=== PATIENT | female | born 1950 | race Caucasian/White ===

== ENCOUNTER 2016-05-31 09:20 | Outpatient (CLI) | payer OTHER ==
--- NOTE | 2016-05-31 09:49 | DIAGNOSTIC IMAGING REPORT ---
PROCEDURE: XR CHEST 2 VIEW INDICATION: ABNORMAL SPUTUM TECHNIQUE: PA and lateral view. COMPARISON: None. FINDINGS: Lungs are clear. Cardiovascular structures are normal. Mild degenerative changes of the spine. Cholecystectomy. IMPRESSION: 1. Negative chest. 2. Results discussed with Dr. Falcon
== END 2016-05-31 23:00 ==
LOC: XR SRH 09:20
DX: R09.3 Abnormal sputum (principal)

== ENCOUNTER 2016-09-16 10:24 | Outpatient (CLI) | payer OTHER ==
--- NOTE | 2016-09-16 10:58 | DIAGNOSTIC IMAGING REPORT ---
PROCEDURE: XR KNEE 3 VIEWS - LEFT INDICATION: KNEE PAIN LEFT TECHNIQUE: Three views. COMPARISON: None. FINDINGS: Osteoarthritis with narrowing of the medial joint space compartment and sclerosis of the endplates. IMPRESSION: 1. Osteoarthritis left knee.
== END 2016-09-16 23:00 ==
LOC: XR SRH 10:24
DX: M17.12 Unilateral primary osteoarthritis, left knee (principal)

== ENCOUNTER 2016-10-16 09:46 | Outpatient (CLI) | payer OTHER ==
--- NOTE | 2016-10-16 10:39 | DIAGNOSTIC IMAGING REPORT ---
PROCEDURE: XR CHEST 2 VIEW INDICATION: COUGH CHRONIC TECHNIQUE: PA and lateral views. COMPARISON: Chest 05/31/2016 FINDINGS: Lungs are clear. Heart and mediastinum are normal. Thorax is normal. IMPRESSION: 1. Negative chest.
== END 2016-10-16 23:00 ==
LOC: XR SRH 09:46
DX: R05 Cough (principal)

== ENCOUNTER 2016-10-17 09:20 | Outpatient (CLI) | payer OTHER ==
--- NOTE | 2016-10-17 16:45 | DIAGNOSTIC IMAGING REPORT ---
PROCEDURE: US ECHOCARDIOGRAM INDICATION: Congestive heart failure TECHNIQUE: Comprehensive adult transthoracic echocardiogram of adequate quality. The patient is in sinus rhythm during the study. COMPARISON: None FINDINGS: Left ventricle: Normal size with end diastolic dimension of 3.7 cm. Normal wall thickness. Normal wall motion. Left ventricular ejection fraction is 63%. There is grade 1 diastolic dysfunction. Right ventricle: Normal size and function. Left atrium: Normal size. Right atrium: Normal size. Aortic valve: Normal in structure and function. No stenosis or insufficiency. Mitral valve: Normal in structure and function with trace physiologic insufficiency. Tricuspid valve: Normal in structure and function with trace to mild impression with mild insufficiency. Pulmonary artery systolic pressure is estimated 29 mmHg which is normal. Pulmonic valve: Normal structure and function. Pericardium: Appears normal. No effusion. The Aorta: Ascending aorta is normal in size at 2.9 cm. IMPRESSION: Normal left ventricular ejection fraction Grade 1 diastolic dysfunction Right ventricle normal in size and function All valves normal in function Normal right heart pressures
== END 2016-10-17 23:00 | disposition home or self-care (01) ==
LOC: RT SRH 09:20
DX: R05 Cough (principal); I10 Essential (primary) hypertension; Z86.79 Personal history of other diseases of the circulatory system

== ENCOUNTER 2016-11-03 10:19 | Emergency (ER) | payer OTHER ==
--- NOTE | 2016-11-03 12:23 | DIAGNOSTIC IMAGING REPORT ---
PROCEDURE: XR CHEST 2 VIEW INDICATION: MALAISE TECHNIQUE: PA and lateral view. COMPARISON: Chest x-ray 10/16/2016 FINDINGS: Lungs are clear. Cardiovascular structures are normal. Bony thorax is unremarkable. No significant interval change. IMPRESSION: 1. Negative chest.
--- NOTE | 2016-11-03 13:15 | ED ORDER SUMMARY ---
..... Patient: KENNETH JONES OrderSheet [facility] VisitID: [id number] [address] Ger[address] [place], [place] [id number] 66y, F Registration Date/Time: 11/03/2016 ORDER SHEET Weight: 79.8 kg (stated) Allergies: No Known Drug Allergy GENERAL ORDERS: CBC w Diff Urgent (10:40 11/03/2016 Mary Zuleta) (Ack 10:47 Valentin) (11:42 SRoberts R.N.) CMP Urgent (10:40 11/03/2016 Mary Zuleta) (Ack 10:47 Valentin) (11:42 SRoberts R.N.) UA-Culture if indicated Urgent (10:40 11/03/2016 Mary Zuleta) (Ack 10:47 Valentin) (11:42 SRoberts R.N.) PT with INR Urgent (10:40 11/03/2016 Mary Zuleta) (Ack 10:47 Valentin) (11:43 SRoberts R.N.) PTT Urgent (10:40 11/03/2016 Mary Zuleta) (Ack 10:47 Valentin) (11:43 SRoberts R.N.) Chest 2V Urgent (10:51 11/03/2016 Mary Zuleta) (Ack 11:17 Valentin) (11:50 SRoberts R.N.) TSH Urgent (10:52 11/03/2016 Mary Zuleta) (Ack 11:17 Valentin) (11:43 SRoberts R.N.) - (malaria blood test, microscopy) (11:07 11/03/2016 Mary Zuleta) (Ack 11:17 Valentin) (11:43 SRoberts R.N.) RSV Rapid Screen (Nasal Pharyngeal) (mucus) Urgent (11:29 11/03/2016 Mary Zuleta) (Ack 11:39 Valentin) (11:50 SRoberts R.N.) Rapid Influenza Screen (Nasal Pharyngeal) (mucus) Urgent (11:30 11/03/2016 Mary Zuleta) (Ack 11:39 Valentin) (11:50 SRoberts R.N.) Monoscreen Urgent (11:30 11/03/2016 Mary Zuleta) (Ack 11:39 Valentin) (11:44 Dante Marie) MEDICATION ORDERS: IV FLUIDS: IV Saline Lock (10:52 11/03/2016 Mary Zuleta) (11:52 Dante Marie) ORDER SHEET NOTES: [Electronically signed by Bernarda Ospina R.N. (15:22 11/03/2016)] [Electronically signed by Shyam Foley Dr. (06:13 11/12/2016)] [Electronically locked/signed by Bernarda Ospina R.N. (15:22 11/03/2016)]
--- NOTE | 2016-11-03 13:15 | ED CLINICAL REPORT ---
Clinical Report - Physicians/Mid Levels [address] [place] [address] 11/03/2016 10:20 Patient: KENNETH JONES Time Seen: 1040. Arrived- By private vehicle. Historian- patient. HISTORY OF PRESENT ILLNESS Chief Complaint: malaise. This started 2 months ago and is still present and worsening. It is not gone now. It has been constant. Not gradual onset. At its maximum, severity described as moderate. When seen in the E.D., severity described as moderate. Modifying factors- (worse with exertion. better with rest.). The patient has had fatigue. (states she was in [facility] about 1.5 years ago. States she was diagnosed with malaria at that time. no symptoms after returning back to the [facility]. reports she is concerned because of similar symptoms. no fever, cough, jaundice, or other symptoms. no recent mosquito bites, flea bites, exposure to contaminated fresh water.). Similar symptoms previously: None. Recent medical care: Not recently seen/assessed. REVIEW OF SYSTEMS No fever, sore throat, cough, difficulty breathing or chest pain. No abdominal pain, diarrhea, black stools, bloody stools or skin rash. No headache. All systems otherwise negative, except as recorded above. PAST HISTORY See nurses notes. Medications: Ibuprofen Oral, PRN. Lisinopril-Hydrochlorothiazide Oral (Tablet 10-12.5 mg) 1 tablet, day. Zoloft Oral 25 mg, at bedtime. TraZODone HCl Oral 50 mg, at bedtime (stopped recently). Allergies: No Known Drug Allergy. SOCIAL HISTORY Never smoker. No alcohol use or drug use. No recent travel. Is a local resident. ADDITIONAL NOTES The nursing notes have been reviewed. PHYSICAL EXAM Vital Signs: 11/03/2016 10:42 BP: 136/64. HR: 86. RR: 20. O2 saturation: 100%. Temp: 97.7 F. Pain level now: 0/10. Appearance: Alert. No acute distress. Eyes: Pupils equal, round and reactive to light. Eyes normal inspection. ENT: Ears normal. Nose normal. Pharynx normal. Neck: Normal inspection. Neck supple. No meningeal signs. CVS: Normal heart rate and rhythm. Heart sounds normal. Pulses normal. Respiratory: No respiratory distress. Breath sounds normal. Chest nontender. No rales, rhonchi or wheezes. Abdomen: No visible injury. Soft and nontender. Bowel sounds normal. Skin: Skin warm and dry. Normal skin color. No rash. Normal skin turgor. Extremities: Extremities exhibit normal ROM. No lower extremity edema. Neuro: No motor deficit. No sensory deficit. LABS, X-RAYS, AND EKG Chest X-ray: (PROCEDURE: XR CHEST 2 VIEW INDICATION: MALAISE TECHNIQUE: PA and lateral view. COMPARISON: Chest x-ray 10/16/2016 FINDINGS: Lungs are clear. Cardiovascular structures are normal. Bony thorax is unremarkable. No significant interval change. IMPRESSION: 1. Negative chest.). The X-rays were independently viewed by me and interpreted by the radiologist. The X-rays were discussed with the radiologist (via pacs). Laboratory Tests: UA-Culture if indicated: (RENETTA: 11/03/2016 11:30) ( [facility] 11/03/2016 12:24) Final results Test Result Flag Units (Reference) URINE COLOR YELLOW URINE APPEARANCE CLEAR URINE GLUCOSE NEGATIVE (NEGATIVE) URINE BILIRUBIN NEGATIVE (NEGATIVE) URINE KETONE NEGATIVE (NEGATIVE) URINE SPECIFIC GRAVITY <= 1.005 L (1.010-1.030) URINE PH 6.5 (5.0-8.0) URINE PROTEIN NEGATIVE (NEGATIVE) URINE UROBILINOGEN 0.2 EU/dL (0.2-1.0) URINE NITRITE NEGATIVE (NEGATIVE) URINE BLOOD NEGATIVE (NEGATIVE) URINE LEUK ESTERASE POSITIVE (NEGATIVE) URINE RBC NONE SEEN rbc/hpf (0-1) URINE WBC 3-5 wbc/hpf (0-1) URINE EPITHELIAL CELLS 0-1 EPI/hpf (0-5) URINE BACTERIA FEW (1+) (NONE SEEN) URINE COMMENT CULTURE INDICATED URINE CULTURES ARE SET-UP BASED ON THE FOLLOWING CRITERIA:POSITIVE NITRITEPOSITIVE LEUKOCYTE ESTERASEGREATER THAN 10 WHITE BLOOD CELLSMODERATE (2+) OR GREATER BACTERIA Monoscreen: (RENETTA: 11/03/2016 11:30) ( Mscvd 11/03/2016 13:46) Final results Test Result Flag Units (Reference) MONOSCREEN NEGATIVE (NEGATIVE) CBC w Diff: (RENETTA: 11/03/2016 11:30) ( [facility] 11/03/2016 11:42) Final results Test Result Flag Units (Reference) WHITE BLOOD COUNT 6.3 K/uL (4.5-11.5) RED BLOOD COUNT 4.58 M/uL (4.00-5.20) HEMOGLOBIN 14.7 gm/dL (12.0-16.0) HEMATOCRIT 44.1 % (36.0-46.0) MEAN CELL VOLUME 96 fL (80-100) MEAN CORPUSCULAR HGB 32 pg (26-34) MEAN CORPUSCULAR HGB CONC 33 g/dL (31-37) RED CELL DISTRIBUTION WIDTH 13.0 % (11.6-14.8) PLATELET COUNT 352 K/uL (150-400) NEUTROPHIL % 67.4 % (50-75) LYMPH % 23.3 L % (25-40) MONO % 6.5 % (3-14) EOSINOPHIL % 2.5 % (0-4) BASOPHIL % 0.3 % (0-2) PT with INR: (RENETTA: 11/03/2016 11:30) ( TxgRcvd 11/03/2016 11:51) Final results Test Result Flag Units (Reference) INR 1.0 (0.8-1.2) Low Intensity Therapy: INR 1.5-2.0 PT range 18.5-23.1Mod.Intensity Therapy: INR 2.0-3.0 PT range 23.1-31.5High Intensity Therapy: INR 2.5-3.5 PT range 27.4-35.5High Intensity Therapy 2: INR 3.0-4.0 PT range 31.5-39.3 APTT 27 SECONDS (24-34) CMP: (RENETTA: 11/03/2016 11:30) ( [facility] 11/03/2016 14:01) Final results Test Result Flag Units (Reference) GLUCOSE 101 mg/dL (70-110) BUN 13 mg/dL (7-18) CREATININE 0.8 mg/dL (0.6-1.3) Estimated GFR >60 mL/min Estimated GFR- >60 mL/min Note: Persistent reduction over 3 months in eGFR<60 mL/min/1.73 m2 defines CKD. Patients with eGFR values>=60 mL/min/1.73 m2 may also have CKD if evidence ofpersistent proteinuria. Additional information may be foundat www.kidney.org. SODIUM 142 mmol/L (136-145) POTASSIUM 3.6 mmol/L (3.5-5.1) CHLORIDE 103 mmol/L (98-107) CARBON DIOXIDE 30 mmol/L (21-32) CALCIUM 9.4 mg/dL (8.5-10.1) TOTAL PROTEIN 7.8 g/dL (6.4-8.2) ALBUMIN 3.8 g/dL (3.3-5.0) BILIRUBIN, TOTAL 0.3 mg/dL (0.0-1.0) ALKALINE PHOSPHATASE 65 U/L (46-116) AST (SGOT) 22 U/L (15-37) ALT (SGPT) 22 U/L (12-78) THYROID STIMULATING HORMONE 2.007 uIU/mL (0.30-3.74) Culture, Urine: (RENETTA: 11/03/2016 11:30) ( [facility] 11/05/2016 12:15) Final results Test Result Flag Units (Reference) CULTURE, URINE DATE: 11/05/16 NO SIGNIFICANT ISOLATION: NO SIGNIFICANT ISOLATION PRELIM REPORT: FINAL REPORT RSV Rapid Screen: (RENETTA: 11/03/2016 11:40) ( Mscvd 11/03/2016 12:13) Final results SPECIMEN DESCRIPTION: MUCUS Test Result Flag Units (Reference) RSV RAPID TEST DATE: 11/03/16 NEGATIVE SCREEN: NEGATIVE If Rapid RSV test is Negative but RSV is still suspected, a confirmatory RSV DFA can be requested. RAPID INFLUENZA SCREEN DATE: 11/03/16 INFLUENZA A: NEGATIVE SCREEN FOR INFLUENZA A INFLUENZA B: NEGATIVE SCREEN FOR INFLUENZA B . Lab Tests Pending: Laboratory tests pending. (malaria study). 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 No specific symptoms at this time. work up ordered for possible malaria. labs is a send out. will be looking for other causes of malaise including metabolic or infectious etiologies. patient agreeable to the treatment and plan. work up shows + UTI. malaria is a send out and will take 3 days. with no elevation in liver enzymes, bili, or abnormal h/h very low clinical suspicion for malaria. Disposition: Discharged. Condition: good. CLINICAL IMPRESSION 11/03/2016 10:42 BP: 136/64. HR: 86. RR: 20. O2 saturation: 100%. Temp: 97.7 F. Pain level now: 0/10. Blood pressure normal. Oxygen saturation normal. Acute urinary tract infection. INSTRUCTIONS Warnings: GENERAL WARNINGS: Return or contact your physician immediately if your condition worsens or changes unexpectedly, if not improving as expected, or if other problems arise. Specifically return if pain, vomiting, bleeding, breathing difficulty or fever. Your Current Medications: CONTINUE TAKING THE FOLLOWING MEDICATIONS: Ibuprofen Oral : PRN. Lisinopril-Hydrochlorothiazide Oral : Tablet 10-12.5 mg, 1 tablet day. TraZODone HCl Oral : 50 mg at bedtime, stopped recently. Zoloft Oral : 25 mg at bedtime. Prescription Medications: Keflex 500 mg: take 1 capsule orally every 8 hours for 5 days. No refill. Substitution is permissible. (disp 15 caps) Follow-up: Return to the emergency department as needed. Follow up with your doctor in three days. Reason for referral: recheck today's concerns. Summary of care provided to patient via paper. Screening today revealed the patient's blood pressure to be in the normal range. The patient should follow up with a primary care provider for blood pressure management. Understanding of the discharge instructions verbalized by patient. (Electronically signed by Shyam Foley Dr. 11/12/2016 6:13)
--- NOTE | 2016-11-03 13:15 | ED NURSING NOTES ---
Clinical Report - Nurses [facility] [address] [place] [address] 11/03/2016 10:20 [id number] Triage time 10:42. Acuity: LEVEL 3. Chief Complaint: FEVER, MUSCLE ACHES, FATIGUE, WEAKNESS and DIARRHEA ("I think I have Malaria. I've had it 5 times. I feel exhausted, can't eat, fever."). Alert. No acute distress. SEPSIS SCREEN: Sepsis Screen: negative. Negative (no infection suspected/documented). SEGUN COMA SCORE: Segun Coma Scale: 15- eyes open spontaneously (4); best verbal response- oriented x 4 (5); best motor response- obeys commands (6). --10:52 Bernarda Ospina R.N. 10:42 11/03/16. BP: 136/64. HR: 86. RR: 20. O2 saturation: 100% on room air. Temp: 97.7 F. Pain level now: 0/10. --10:52 Bernarda Ospina R.N. 10:42 11/03/16. BP: 136/64. HR: 86. RR: 20. O2 saturation: 100% on room air. Temp: 97.7 F. Pain level now: 0/10. --10:52 Bernarda Ospina R.N. Weight: 79.8 kg stated. Height/Length: 61 inches Per Patient. BMI: 33.3. --10:47 Bernarda Ospina R.N. Medications TraZODone HCl Oral 50 mg, at bedtime (stopped recently). --10:49 Bernarda Ospina R.N. Zoloft Oral 25 mg, at bedtime. --10:50 Bernarda Ospina R.N. Lisinopril-Hydrochlorothiazide Oral (Tablet 10-12.5 mg) 1 tablet, day. --10:50 Bernarda Ospina R.N. Ibuprofen Oral, PRN. --10:51 Bernarda Ospina R.N. Medication/allergy information source: the patient. --10:52 Bernarda Ospina R.N. Allergies No Known Drug Allergy. --10:51 Bernarda Ospina R.N. History Arrived by private vehicle. Historian: patient and family. Accompanied by family. Primary physician (JOY). Onset. (2 months ago, Has had). She has had weakness and a cough. Reports muscle aches. No fever. 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 PAST MEDICAL HX: Hypertension. Pneumonia. Immunizations: status is unknown. The patient is post-menopausal. ( malaria). SOCIAL HX: Never smoker. Occasional alcohol use. No drug use. FALL RISK ASSESSMENT: Fall risk assessment completed. No fall risk identified. NUTRITIONAL RISK ASSESSMENT: The nutritional risk assessment revealed no deficiencies. FUNCTIONAL ASSESSMENT: Functional assessment: no impairments noted. LEARNING NEEDS ASSESSMENT: The learning needs assessment revealed no barriers. SKIN INTEGRITY ASSESSMENT: Skin integrity risk assessment completed. No skin integrity risk identified. --10:52 Bernarda Ospina R.N. PROBLEMS: Malaria x 5. --10:46 Bernarda Ospina R.N. Interventions ID band on patient. To room. --10:52 Bernarda Ospina R.N. PHYSICAL ASSESSMENT Ambulatory to room. Patient gowned. GENERAL / NEURO / PSYCH: Alert. Oriented X 4. Appears in no acute distress. Appears anxious. HEENT: Mucous membranes are pink. RESPIRATORY: Respirations not labored. CVS: Capillary refill less than 2 seconds. GI / : Abdomen nontender. SKIN: Skin intact. Skin is warm and dry. Normal skin turgor. --10:53 Bernarda Ospina R.N. NURSING PROGRESS NOTES Patient gowned. Head of bed elevated. Two patient identifiers checked. Call light placed in reach. Side rails up x 2. Bed placed in lowest position. Brakes of bed on. Patient ready for evaluation. --10:53 Bernarda Ospina R.N. 11:37 11/03/2016 Site #1 started via IV in the left antecubital space with an 20g angiocath, with aseptic technique and good blood return; one attempt. Blood drawn: rainbow set. Labeled in the presence of the patient and sent to the lab. Saline lock flushed with saline (Extra purple tube for the malaria). --11:52 Bernarda Ospina R.N. 11:50. ( Nasal pharyngeal swab done and sent to the lab.). --11:55 Bernarda Ospina R.N. 13:20 11/03/2016 Site #1 removed upon discharge. Catheter intact. Bandaid applied. --14:56 Bernarda Ospina R.N. DISPOSITION / DISCHARGE 13:20. Condition at departure: unchanged. No learning barriers present. Reviewed medication(s) side effects, precautions, dosing and course information. Prescription(s) given to the patient. Patient verbalized understanding. Written instructions provided in Belarusian. The patient was discharged home and accompanied by spouse. She left the Emergency Department ambulatory and via private vehicle. Spouse driving. Medication list reviewed and validated. --15:22 Bernarda Ospina R.N. 13:20 11/03/16. BP: 122/78. HR: 83. RR: 18. O2 saturation: 100%. Temp: deferred. Pain level now: 2/10. 12:17 11/03/16. BP: 128/87. HR: 72. RR: 16. O2 saturation: 100%. Pain level now: 2/10. 10:42 11/03/16. BP: 136/64. HR: 86. RR: 20. O2 saturation: 100% on room air. Temp: 97.7 F. Pain level now: 0/10. --15:22 Bernarda Ospina R.N. Locked/Released at 11/03/2016 15:22 by Bernarda Ospina R.N.
--- NOTE | 2016-11-03 13:15 | ED ORDER SUMMARY ---
..... Patient: KENNETH JONES OrderSheet [facility] VisitID: [id number] [address] [place], [place] [id number] 66y, F Registration Date/Time: 11/03/2016 ORDER SHEET Weight: 79.8 kg (stated) Allergies: No Known Drug Allergy GENERAL ORDERS: CBC w Diff Urgent (10:40 11/03/2016 Mary Zuleta) (Ack 10:47 Valentin) (11:42 SRoberts R.N.) CMP Urgent (10:40 11/03/2016 Mary Zuleta) (Ack 10:47 Valentin) (11:42 SRoberts R.N.) UA-Culture if indicated Urgent (10:40 11/03/2016 Mary Zuleta) (Ack 10:47 Valentin) (11:42 SRoberts R.N.) PT with INR Urgent (10:40 11/03/2016 Mary Zuleta) (Ack 10:47 Valentin) (11:43 SRoberts R.N.) PTT Urgent (10:40 11/03/2016 Mary Zuleta) (Ack 10:47 Valentin) (11:43 SRoberts R.N.) Chest 2V Urgent (10:51 11/03/2016 Mary Zuleta) (Ack 11:17 Valentin) (11:50 SRoberts R.N.) TSH Urgent (10:52 11/03/2016 Mary Zuleta) (Ack 11:17 Valentin) (11:43 SRoberts R.N.) - (malaria blood test, microscopy) (11:07 11/03/2016 Mary Zuleta) (Ack 11:17 Valentin) (11:43 SRoberts R.N.) RSV Rapid Screen (Nasal Pharyngeal) (mucus) Urgent (11:29 11/03/2016 Mary Zuleta) (Ack 11:39 Valentin) (11:50 SRoberts R.N.) Rapid Influenza Screen (Nasal Pharyngeal) (mucus) Urgent (11:30 11/03/2016 Mary Zuleta) (Ack 11:39 Valentin) (11:50 SRoberts R.N.) Monoscreen Urgent (11:30 11/03/2016 Mary Zuleta) (Ack 11:39 Valentin) (11:44 Dante Marie) MEDICATION ORDERS: IV FLUIDS: IV Saline Lock (10:52 11/03/2016 Mary Zuleta) (11:52 Dante Marie) ORDER SHEET NOTES: [Electronically signed by Bernarda Ospina R.N. (15:22 11/03/2016)] [Electronically signed by Shyam Foley Dr. (06:13 11/12/2016)] [Electronically locked/signed by Bernarda Ospina R.N. (15:22 11/03/2016)]
--- NOTE | 2016-11-03 13:15 | ED CLINICAL REPORT ---
Clinical Report - Physicians/Mid Levels [facility] [address] [place] [address] 11/03/2016 10:20 Patient: KENNETH JONES Time Seen: 1040. Arrived- By private vehicle. Historian- patient. HISTORY OF PRESENT ILLNESS Chief Complaint: malaise. This started 2 months ago and is still present and worsening. It is not gone now. It has been constant. Not gradual onset. At its maximum, severity described as moderate. When seen in the E.D., severity described as moderate. Modifying factors- (worse with exertion. better with rest.). The patient has had fatigue. (states she was in [facility] about 1.5 years ago. States she was diagnosed with malaria at that time. no symptoms after returning back to the [facility]. reports she is concerned because of similar symptoms. no fever, cough, jaundice, or other symptoms. no recent mosquito bites, flea bites, exposure to contaminated fresh water.). Similar symptoms previously: None. Recent medical care: Not recently seen/assessed. REVIEW OF SYSTEMS No fever, sore throat, cough, difficulty breathing or chest pain. No abdominal pain, diarrhea, black stools, bloody stools or skin rash. No headache. All systems otherwise negative, except as recorded above. PAST HISTORY See nurses notes. Medications: Ibuprofen Oral, PRN. Lisinopril-Hydrochlorothiazide Oral (Tablet 10-12.5 mg) 1 tablet, day. Zoloft Oral 25 mg, at bedtime. TraZODone HCl Oral 50 mg, at bedtime (stopped recently). Allergies: No Known Drug Allergy. SOCIAL HISTORY Never smoker. No alcohol use or drug use. No recent travel. Is a local resident. ADDITIONAL NOTES The nursing notes have been reviewed. PHYSICAL EXAM Vital Signs: 11/03/2016 10:42 BP: 136/64. HR: 86. RR: 20. O2 saturation: 100%. Temp: 97.7 F. Pain level now: 0/10. Appearance: Alert. No acute distress. Eyes: Pupils equal, round and reactive to light. Eyes normal inspection. ENT: Ears normal. Nose normal. Pharynx normal. Neck: Normal inspection. Neck supple. No meningeal signs. CVS: Normal heart rate and rhythm. Heart sounds normal. Pulses normal. Respiratory: No respiratory distress. Breath sounds normal. Chest nontender. No rales, rhonchi or wheezes. Abdomen: No visible injury. Soft and nontender. Bowel sounds normal. Skin: Skin warm and dry. Normal skin color. No rash. Normal skin turgor. Extremities: Extremities exhibit normal ROM. No lower extremity edema. Neuro: No motor deficit. No sensory deficit. LABS, X-RAYS, AND EKG Chest X-ray: (PROCEDURE: XR CHEST 2 VIEW INDICATION: MALAISE TECHNIQUE: PA and lateral view. COMPARISON: Chest x-ray 10/16/2016 FINDINGS: Lungs are clear. Cardiovascular structures are normal. Bony thorax is unremarkable. No significant interval change. IMPRESSION: 1. Negative chest.). The X-rays were independently viewed by me and interpreted by the radiologist. The X-rays were discussed with the radiologist (via pacs). Laboratory Tests: UA-Culture if indicated: (RENETTA: 11/03/2016 11:30) ( [facility] 11/03/2016 12:24) Final results Test Result Flag Units (Reference) URINE COLOR YELLOW URINE APPEARANCE CLEAR URINE GLUCOSE NEGATIVE (NEGATIVE) URINE BILIRUBIN NEGATIVE (NEGATIVE) URINE KETONE NEGATIVE (NEGATIVE) URINE SPECIFIC GRAVITY <= 1.005 L (1.010-1.030) URINE PH 6.5 (5.0-8.0) URINE PROTEIN NEGATIVE (NEGATIVE) URINE UROBILINOGEN 0.2 EU/dL (0.2-1.0) URINE NITRITE NEGATIVE (NEGATIVE) URINE BLOOD NEGATIVE (NEGATIVE) URINE LEUK ESTERASE POSITIVE (NEGATIVE) URINE RBC NONE SEEN rbc/hpf (0-1) URINE WBC 3-5 wbc/hpf (0-1) URINE EPITHELIAL CELLS 0-1 EPI/hpf (0-5) URINE BACTERIA FEW (1+) (NONE SEEN) URINE COMMENT CULTURE INDICATED URINE CULTURES ARE SET-UP BASED ON THE FOLLOWING CRITERIA:POSITIVE NITRITEPOSITIVE LEUKOCYTE ESTERASEGREATER THAN 10 WHITE BLOOD CELLSMODERATE (2+) OR GREATER BACTERIA Monoscreen: (RENETTA: 11/03/2016 11:30) ( [facility] 11/03/2016 13:46) Final results Test Result Flag Units (Reference) MONOSCREEN NEGATIVE (NEGATIVE) CBC w Diff: (RENETTA: 11/03/2016 11:30) ( [facility] 11/03/2016 11:42) Final results Test Result Flag Units (Reference) WHITE BLOOD COUNT 6.3 K/uL (4.5-11.5) RED BLOOD COUNT 4.58 M/uL (4.00-5.20) HEMOGLOBIN 14.7 gm/dL (12.0-16.0) HEMATOCRIT 44.1 % (36.0-46.0) MEAN CELL VOLUME 96 fL (80-100) MEAN CORPUSCULAR HGB 32 pg (26-34) MEAN CORPUSCULAR HGB CONC 33 g/dL (31-37) RED CELL DISTRIBUTION WIDTH 13.0 % (11.6-14.8) PLATELET COUNT 352 K/uL (150-400) NEUTROPHIL % 67.4 % (50-75) LYMPH % 23.3 L % (25-40) MONO % 6.5 % (3-14) EOSINOPHIL % 2.5 % (0-4) BASOPHIL % 0.3 % (0-2) PT with INR: (RENETTA: 11/03/2016 11:30) ( [facility] 11/03/2016 11:51) Final results Test Result Flag Units (Reference) INR 1.0 (0.8-1.2) Low Intensity Therapy: INR 1.5-2.0 PT range 18.5-23.1Mod.Intensity Therapy: INR 2.0-3.0 PT range 23.1-31.5High Intensity Therapy: INR 2.5-3.5 PT range 27.4-35.5High Intensity Therapy 2: INR 3.0-4.0 PT range 31.5-39.3 APTT 27 SECONDS (24-34) CMP: (RENETTA: 11/03/2016 11:30) ( [facility] 11/03/2016 14:01) Final results Test Result Flag Units (Reference) GLUCOSE 101 mg/dL (70-110) BUN 13 mg/dL (7-18) CREATININE 0.8 mg/dL (0.6-1.3) Estimated GFR >60 mL/min Estimated GFR- >60 mL/min Note: Persistent reduction over 3 months in eGFR<60 mL/min/1.73 m2 defines CKD. Patients with eGFR values>=60 mL/min/1.73 m2 may also have CKD if evidence ofpersistent proteinuria. Additional information may be foundat www.kidney.org. SODIUM 142 mmol/L (136-145) POTASSIUM 3.6 mmol/L (3.5-5.1) CHLORIDE 103 mmol/L (98-107) CARBON DIOXIDE 30 mmol/L (21-32) CALCIUM 9.4 mg/dL (8.5-10.1) TOTAL PROTEIN 7.8 g/dL (6.4-8.2) ALBUMIN 3.8 g/dL (3.3-5.0) BILIRUBIN, TOTAL 0.3 mg/dL (0.0-1.0) ALKALINE PHOSPHATASE 65 U/L (46-116) AST (SGOT) 22 U/L (15-37) ALT (SGPT) 22 U/L (12-78) THYROID STIMULATING HORMONE 2.007 uIU/mL (0.30-3.74) Culture, Urine: (RENETTA: 11/03/2016 11:30) ( [facility] 11/05/2016 12:15) Final results Test Result Flag Units (Reference) CULTURE, URINE DATE: 11/05/16 NO SIGNIFICANT ISOLATION: NO SIGNIFICANT ISOLATION PRELIM REPORT: FINAL REPORT RSV Rapid Screen: (RENETTA: 11/03/2016 11:40) ( [facility] 11/03/2016 12:13) Final results SPECIMEN DESCRIPTION: MUCUS Test Result Flag Units (Reference) RSV RAPID TEST DATE: 11/03/16 NEGATIVE SCREEN: NEGATIVE If Rapid RSV test is Negative but RSV is still suspected, a confirmatory RSV DFA can be requested. RAPID INFLUENZA SCREEN DATE: 11/03/16 INFLUENZA A: NEGATIVE SCREEN FOR INFLUENZA A INFLUENZA B: NEGATIVE SCREEN FOR INFLUENZA B . Lab Tests Pending: Laboratory tests pending. (malaria study). 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 No specific symptoms at this time. work up ordered for possible malaria. labs is a send out. will be looking for other causes of malaise including metabolic or infectious etiologies. patient agreeable to the treatment and plan. work up shows + UTI. malaria is a send out and will take 3 days. with no elevation in liver enzymes, bili, or abnormal h/h very low clinical suspicion for malaria. Disposition: Discharged. Condition: good. CLINICAL IMPRESSION 11/03/2016 10:42 BP: 136/64. HR: 86. RR: 20. O2 saturation: 100%. Temp: 97.7 F. Pain level now: 0/10. Blood pressure normal. Oxygen saturation normal. Acute urinary tract infection. INSTRUCTIONS Warnings: GENERAL WARNINGS: Return or contact your physician immediately if your condition worsens or changes unexpectedly, if not improving as expected, or if other problems arise. Specifically return if pain, vomiting, bleeding, breathing difficulty or fever. Your Current Medications: CONTINUE TAKING THE FOLLOWING MEDICATIONS: Ibuprofen Oral : PRN. Lisinopril-Hydrochlorothiazide Oral : Tablet 10-12.5 mg, 1 tablet day. TraZODone HCl Oral : 50 mg at bedtime, stopped recently. Zoloft Oral : 25 mg at bedtime. Prescription Medications: Keflex 500 mg: take 1 capsule orally every 8 hours for 5 days. No refill. Substitution is permissible. (disp 15 caps) Follow-up: Return to the emergency department as needed. Follow up with your doctor in three days. Reason for referral: recheck today's concerns. Summary of care provided to patient via paper. Screening today revealed the patient's blood pressure to be in the normal range. The patient should follow up with a primary care provider for blood pressure management. Understanding of the discharge instructions verbalized by patient. (Electronically signed by Shyam Foley Dr. 11/12/2016 6:13)
--- NOTE | 2016-11-03 13:15 | ED NURSING NOTES ---
Clinical Report - Nurses [facility] [address] [place] [address] 11/03/2016 10:20 [id number] Triage time 10:42. Acuity: LEVEL 3. Chief Complaint: FEVER, MUSCLE ACHES, FATIGUE, WEAKNESS and DIARRHEA ("I think I have Malaria. I've had it 5 times. I feel exhausted, can't eat, fever."). Alert. No acute distress. SEPSIS SCREEN: Sepsis Screen: negative. Negative (no infection suspected/documented). SEGUN COMA SCORE: Segun Coma Scale: 15- eyes open spontaneously (4); best verbal response- oriented x 4 (5); best motor response- obeys commands (6). --10:52 Bernarda Ospina R.N. 10:42 11/03/16. BP: 136/64. HR: 86. RR: 20. O2 saturation: 100% on room air. Temp: 97.7 F. Pain level now: 0/10. --10:52 Bernarda Ospina R.N. 10:42 11/03/16. BP: 136/64. HR: 86. RR: 20. O2 saturation: 100% on room air. Temp: 97.7 F. Pain level now: 0/10. --10:52 Bernarda Ospina R.N. Weight: 79.8 kg stated. Height/Length: 61 inches Per Patient. BMI: 33.3. --10:47 Bernarda Ospina R.N. Medications TraZODone HCl Oral 50 mg, at bedtime (stopped recently). --10:49 Bernarda Ospina R.N. Zoloft Oral 25 mg, at bedtime. --10:50 Bernarda Ospina R.N. Lisinopril-Hydrochlorothiazide Oral (Tablet 10-12.5 mg) 1 tablet, day. --10:50 Bernarda Ospina R.N. Ibuprofen Oral, PRN. --10:51 Bernarda Ospina R.N. Medication/allergy information source: the patient. --10:52 Bernarda Ospina R.N. Allergies No Known Drug Allergy. --10:51 Bernarda Ospina R.N. History Arrived by private vehicle. Historian: patient and family. Accompanied by family. Primary physician (JOY). Onset. (2 months ago, Has had). She has had weakness and a cough. Reports muscle aches. No fever. 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 PAST MEDICAL HX: Hypertension. Pneumonia. Immunizations: status is unknown. The patient is post-menopausal. ( malaria). SOCIAL HX: Never smoker. Occasional alcohol use. No drug use. FALL RISK ASSESSMENT: Fall risk assessment completed. No fall risk identified. NUTRITIONAL RISK ASSESSMENT: The nutritional risk assessment revealed no deficiencies. FUNCTIONAL ASSESSMENT: Functional assessment: no impairments noted. LEARNING NEEDS ASSESSMENT: The learning needs assessment revealed no barriers. SKIN INTEGRITY ASSESSMENT: Skin integrity risk assessment completed. No skin integrity risk identified. --10:52 Bernarda Ospina R.N. PROBLEMS: Malaria x 5. --10:46 Bernarda Ospina R.N. Interventions ID band on patient. To room. --10:52 Bernarda Ospina R.N. PHYSICAL ASSESSMENT Ambulatory to room. Patient gowned. GENERAL / NEURO / PSYCH: Alert. Oriented X 4. Appears in no acute distress. Appears anxious. HEENT: Mucous membranes are pink. RESPIRATORY: Respirations not labored. CVS: Capillary refill less than 2 seconds. GI / : Abdomen nontender. SKIN: Skin intact. Skin is warm and dry. Normal skin turgor. --10:53 Bernarda Ospina R.N. NURSING PROGRESS NOTES Patient gowned. Head of bed elevated. Two patient identifiers checked. Call light placed in reach. Side rails up x 2. Bed placed in lowest position. Brakes of bed on. Patient ready for evaluation. --10:53 Bernarda Ospina R.N. 11:37 11/03/2016 Site #1 started via IV in the left antecubital space with an 20g angiocath, with aseptic technique and good blood return; one attempt. Blood drawn: rainbow set. Labeled in the presence of the patient and sent to the lab. Saline lock flushed with saline (Extra purple tube for the malaria). --11:52 Bernarda Ospina R.N. 11:50. ( Nasal pharyngeal swab done and sent to the lab.). --11:55 Bernarda Ospina R.N. 13:20 11/03/2016 Site #1 removed upon discharge. Catheter intact. Bandaid applied. --14:56 Bernarda Ospina R.N. DISPOSITION / DISCHARGE 13:20. Condition at departure: unchanged. No learning barriers present. Reviewed medication(s) side effects, precautions, dosing and course information. Prescription(s) given to the patient. Patient verbalized understanding. Written instructions provided in Chadian. The patient was discharged home and accompanied by spouse. She left the Emergency Department ambulatory and via private vehicle. Spouse driving. Medication list reviewed and validated. --15:22 Bernarda Ospina R.N. 13:20 11/03/16. BP: 122/78. HR: 83. RR: 18. O2 saturation: 100%. Temp: deferred. Pain level now: 2/10. 12:17 11/03/16. BP: 128/87. HR: 72. RR: 16. O2 saturation: 100%. Pain level now: 2/10. 10:42 11/03/16. BP: 136/64. HR: 86. RR: 20. O2 saturation: 100% on room air. Temp: 97.7 F. Pain level now: 0/10. --15:22 Bernarda Ospina R.N. Locked/Released at 11/03/2016 15:22 by Bernarda Ospina R.N.
--- NOTE | 2016-11-12 06:13 | ED MAR SUMMARY ---
..... Medication Administration Record [facility] [address], [place] [id number] Patient: KENNETH JONES Visit ID: [id number] 66y, F Weight: 79.8 kg Height/Length: 61 in BMI: 33.3 ALLERGIES: No Known Drug Allergy
--- NOTE | 2016-11-12 06:13 | ED DISCHARGE INSTRUCTIONS ---
Patient: KENNETH JONES General Instructions [facility] VisitID: [id number] [place] [address] 66y, F Registration Date/Time: 11/03/2016 11/03/2016 10:42 BP: 136/64. HR: 86. RR: 20. O2 saturation: 100%. Temp: 97.7 F. Pain level now: 0/10. Blood pressure normal. Oxygen saturation normal. Acute urinary tract infection. INSTRUCTIONS Warnings: GENERAL WARNINGS: Return or contact your physician immediately if your condition worsens or changes unexpectedly, if not improving as expected, or if other problems arise. Specifically return if pain, vomiting, bleeding, breathing difficulty or fever. Your Current Medications: CONTINUE TAKING THE FOLLOWING MEDICATIONS: Ibuprofen Oral : PRN. Lisinopril-Hydrochlorothiazide Oral : Tablet 10-12.5 mg, 1 tablet day. TraZODone HCl Oral : 50 mg at bedtime, stopped recently. Zoloft Oral : 25 mg at bedtime. Prescription Medications: Keflex 500 mg: take 1 capsule orally every 8 hours for 5 days. No refill. Substitution is permissible. (disp 15 caps) Follow-up: Return to the emergency department as needed. Follow up with your doctor in three days. Reason for referral: recheck today's concerns. Summary of care provided to patient via paper. Screening today revealed the patient's blood pressure to be in the normal range. The patient should follow up with a primary care provider for blood pressure management. Understanding of the discharge instructions verbalized by patient. ADDITIONAL INFORMATION Bladder Infection,Female (Adult) A bladder infection ("cystitis" or "UTI") usually causes a constant urge to urinate and a burning when passing urine. Urine may be cloudy, smelly or dark. There may be pain in the lower abdomen. A bladder infection occurs when bacteria from the vaginal area enter the bladder opening (urethra). This can occur from sexual intercourse, wearing tight clothing, dehydration and other factors. Home Care: Drink lots of fluids (at least 6-8 glasses a day, unless you must restrict fluids for other medical reasons). This will force the medicine into your urinary system and flush the bacteria out of your body. Avoid sexual intercourse until your symptoms are gone. Avoid caffeine, alcohol and spicy foods. These can irritate the bladder. A bladder infection is treated with antibiotics. You may also be given Pyridium (generic = phenazopyridine) to reduce the burning sensation. This medicine will cause your urine to become a bright orange color. The orange urine may stain clothing. You may wear a pad or panty-liner to protect clothing. Preventing Future Infections: Always wipe from front to back after a bowel movement. Keep the genital area clean and dry. Drink plenty of fluids each day to avoid dehydration. Both sexual partners should wash before intercourse. Urinate right after intercourse to flush out the bladder. Wear cotton underwear and cotton-lined panty hose; avoid tight-fitting pants. If you are on control pills and are having frequent bladder infections, discuss with your doctor. Follow Up: Return to this facility or see your doctor if ALL symptoms are not gone after three days of treatment. Get Prompt Medical Attention if any of the following occur: Fever of 100.4F (38C) or higher, or as directed by your healthcare provider No improvement by the third day of treatment Increasing back or abdominal pain Repeated vomiting; unable to keep medicine down Weakness, dizziness or fainting Vaginal discharge Pain, redness or swelling in the labia (outer vaginal area) Cephalexin Monohydrate Oral tablet What is this medicine? CEPHALEXIN (sef a TUSHAR in) is a cephalosporin antibiotic. It is used to treat certain kinds of bacterial infections It will not work for colds, flu, or other viral infections. How should I use this medicine? Take this medicine by mouth with a full glass of water. Follow the directions on the prescription label. This medicine can be taken with or without food. Take your medicine at regular intervals. Do not take your medicine more often than directed. Take all of your medicine as directed even if you think you are better. Do not skip doses or stop your medicine early. Talk to your forming and assembling supervisor regarding the use of this medicine in children. While this drug may be prescribed for selected conditions, precautions do apply. What side effects may I notice from receiving this medicine? Side effects that you should report to your doctor or health family day care worker as soon as possible: allergic reactions like skin rash, itching or hives, swelling of the face, lips, or tongue breathing problems pain or trouble passing urine redness, blistering, peeling or loosening of the skin, including inside the mouth severe or watery diarrhea unusually weak or tired yellowing of the eyes, skin Side effects that usually do not require medical attention (report to your doctor or health family day care worker if they continue or are bothersome): gas or heartburn genital or anal irritation headache joint or muscle pain nausea, vomiting What may interact with this medicine? probenecid some other antibiotics What if I miss a dose? If you miss a dose, take it as soon as you can. If it is almost time for your next dose, take only that dose. Do not take double or extra doses. There should be at least 4 to 6 hours between doses. Where should I keep my medicine? Keep out of the reach of children. Store at room temperature between 59 and 86 degrees F (15 and 30 degrees C). Throw away any unused medicine after the expiration date. What should I tell my health care provider before I take this medicine? They need to know if you have any of these conditions: kidney disease stomach or intestine problems, especially colitis an unusual or allergic reaction to cephalexin, other cephalosporins, penicillins, other antibiotics, medicines, foods, dyes or preservatives or trying to get breast-feeding What should I watch for while using this medicine? Tell your doctor or health family day care worker if your symptoms do not begin to improve in a few days. Do not treat diarrhea with over the counter products. Contact your doctor if you have diarrhea that lasts more than 2 days or if it is severe and watery. If you have diabetes, you may get a false-positive result for sugar in your urine. Check with your doctor or health family day care worker. You have been given the following additional information: Bladder Infection, Female (Adult) Cephalexin Monohydrate Oral tablet (Electronically signed by Shyam Foley Dr. 11/12/2016 6:13)
--- NOTE | 2016-11-12 06:13 | ED MED RECONCILIATION SUMMARY ---
Patient: KENNETH JONES Medication Reconciliation Report [facility] VisitID: [id number] [address] [place] [address] 66y, F Registration Date/Time: 11/03/2016 Weight: 79.8 kg Height/Length: 61 in. BMI: 33.3 ALLERGIES: No Known Drug Allergy The patient's Home Medications are listed below: CONTINUE TAKING THE FOLLOWING MEDICATIONS: Ibuprofen Oral, PRN Lisinopril-Hydrochlorothiazide Oral (10-12.5 mg) 1 tablet, day TraZODone HCl Oral 50 mg, at bedtime, stopped recently Zoloft Oral 25 mg, at bedtime The source(s) of the original Home Medication information: patient The following Medications were given to the patient in the Emergency Department: None. The following Medications were prescribed to the patient: Keflex 500 mg: take 1 capsule orally every 8 hours for 5 days. No refill. Substitution is permissible.(disp 15 caps) -- Shyam Foley Dr.
--- NOTE | 2016-11-12 06:13 | ED MAR SUMMARY ---
..... Medication Administration Record [facility] [address], [place] [id number] Patient: KENNETH JONES Visit ID: [id number] 66y, F Weight: 79.8 kg Height/Length: 61 in BMI: 33.3 ALLERGIES: No Known Drug Allergy
--- NOTE | 2016-11-12 06:13 | ED DISCHARGE INSTRUCTIONS ---
Patient: KENNETH JONES General Instructions Located Within [facility] VisitID: [id number] [place] [address] 66y, F Registration Date/Time: 11/03/2016 11/03/2016 10:42 BP: 136/64. HR: 86. RR: 20. O2 saturation: 100%. Temp: 97.7 F. Pain level now: 0/10. Blood pressure normal. Oxygen saturation normal. Acute urinary tract infection. INSTRUCTIONS Warnings: GENERAL WARNINGS: Return or contact your physician immediately if your condition worsens or changes unexpectedly, if not improving as expected, or if other problems arise. Specifically return if pain, vomiting, bleeding, breathing difficulty or fever. Your Current Medications: CONTINUE TAKING THE FOLLOWING MEDICATIONS: Ibuprofen Oral : PRN. Lisinopril-Hydrochlorothiazide Oral : Tablet 10-12.5 mg, 1 tablet day. TraZODone HCl Oral : 50 mg at bedtime, stopped recently. Zoloft Oral : 25 mg at bedtime. Prescription Medications: Keflex 500 mg: take 1 capsule orally every 8 hours for 5 days. No refill. Substitution is permissible. (disp 15 caps) Follow-up: Return to the emergency department as needed. Follow up with your doctor in three days. Reason for referral: recheck today's concerns. Summary of care provided to patient via paper. Screening today revealed the patient's blood pressure to be in the normal range. The patient should follow up with a primary care provider for blood pressure management. Understanding of the discharge instructions verbalized by patient. ADDITIONAL INFORMATION Bladder Infection,Female (Adult) A bladder infection ("cystitis" or "UTI") usually causes a constant urge to urinate and a burning when passing urine. Urine may be cloudy, smelly or dark. There may be pain in the lower abdomen. A bladder infection occurs when bacteria from the vaginal area enter the bladder opening (urethra). This can occur from sexual intercourse, wearing tight clothing, dehydration and other factors. Home Care: Drink lots of fluids (at least 6-8 glasses a day, unless you must restrict fluids for other medical reasons). This will force the medicine into your urinary system and flush the bacteria out of your body. Avoid sexual intercourse until your symptoms are gone. Avoid caffeine, alcohol and spicy foods. These can irritate the bladder. A bladder infection is treated with antibiotics. You may also be given Pyridium (generic = phenazopyridine) to reduce the burning sensation. This medicine will cause your urine to become a bright orange color. The orange urine may stain clothing. You may wear a pad or panty-liner to protect clothing. Preventing Future Infections: Always wipe from front to back after a bowel movement. Keep the genital area clean and dry. Drink plenty of fluids each day to avoid dehydration. Both sexual partners should wash before intercourse. Urinate right after intercourse to flush out the bladder. Wear cotton underwear and cotton-lined panty hose; avoid tight-fitting pants. If you are on control pills and are having frequent bladder infections, discuss with your doctor. Follow Up: Return to this facility or see your doctor if ALL symptoms are not gone after three days of treatment. Get Prompt Medical Attention if any of the following occur: Fever of 100.4F (38C) or higher, or as directed by your healthcare provider No improvement by the third day of treatment Increasing back or abdominal pain Repeated vomiting; unable to keep medicine down Weakness, dizziness or fainting Vaginal discharge Pain, redness or swelling in the labia (outer vaginal area) Cephalexin Monohydrate Oral tablet What is this medicine? CEPHALEXIN (sef a TUSHAR in) is a cephalosporin antibiotic. It is used to treat certain kinds of bacterial infections It will not work for colds, flu, or other viral infections. How should I use this medicine? Take this medicine by mouth with a full glass of water. Follow the directions on the prescription label. This medicine can be taken with or without food. Take your medicine at regular intervals. Do not take your medicine more often than directed. Take all of your medicine as directed even if you think you are better. Do not skip doses or stop your medicine early. Talk to your salvage mend worker regarding the use of this medicine in children. While this drug may be prescribed for selected conditions, precautions do apply. What side effects may I notice from receiving this medicine? Side effects that you should report to your doctor or health after school caregiver as soon as possible: allergic reactions like skin rash, itching or hives, swelling of the face, lips, or tongue breathing problems pain or trouble passing urine redness, blistering, peeling or loosening of the skin, including inside the mouth severe or watery diarrhea unusually weak or tired yellowing of the eyes, skin Side effects that usually do not require medical attention (report to your doctor or health after school caregiver if they continue or are bothersome): gas or heartburn genital or anal irritation headache joint or muscle pain nausea, vomiting What may interact with this medicine? probenecid some other antibiotics What if I miss a dose? If you miss a dose, take it as soon as you can. If it is almost time for your next dose, take only that dose. Do not take double or extra doses. There should be at least 4 to 6 hours between doses. Where should I keep my medicine? Keep out of the reach of children. Store at room temperature between 59 and 86 degrees F (15 and 30 degrees C). Throw away any unused medicine after the expiration date. What should I tell my health care provider before I take this medicine? They need to know if you have any of these conditions: kidney disease stomach or intestine problems, especially colitis an unusual or allergic reaction to cephalexin, other cephalosporins, penicillins, other antibiotics, medicines, foods, dyes or preservatives or trying to get breast-feeding What should I watch for while using this medicine? Tell your doctor or health after school caregiver if your symptoms do not begin to improve in a few days. Do not treat diarrhea with over the counter products. Contact your doctor if you have diarrhea that lasts more than 2 days or if it is severe and watery. If you have diabetes, you may get a false-positive result for sugar in your urine. Check with your doctor or health after school caregiver. You have been given the following additional information: Bladder Infection, Female (Adult) Cephalexin Monohydrate Oral tablet (Electronically signed by Shyam Foley Dr. 11/12/2016 6:13)
--- NOTE | 2016-11-12 06:13 | ED MED RECONCILIATION SUMMARY ---
Patient: KENNETH JONES Medication Reconciliation Report [facility] VisitID: [id number] [address] [place] [address] 66y, F Registration Date/Time: 11/03/2016 Weight: 79.8 kg Height/Length: 61 in. BMI: 33.3 ALLERGIES: No Known Drug Allergy The patient's Home Medications are listed below: CONTINUE TAKING THE FOLLOWING MEDICATIONS: Ibuprofen Oral, PRN Lisinopril-Hydrochlorothiazide Oral (10-12.5 mg) 1 tablet, day TraZODone HCl Oral 50 mg, at bedtime, stopped recently Zoloft Oral 25 mg, at bedtime The source(s) of the original Home Medication information: patient The following Medications were given to the patient in the Emergency Department: None. The following Medications were prescribed to the patient: Keflex 500 mg: take 1 capsule orally every 8 hours for 5 days. No refill. Substitution is permissible.(disp 15 caps) -- Shyam Foley Dr.
== END 2016-11-03 13:20 | disposition home or self-care (01) ==
LOC: ED SRH 10:19
DX: N39.0 Urinary tract infection, site not specified (principal); R53.81 Other malaise; Z86.13 Personal history of malaria; Z79.899 Other long term (current) drug therapy
CPT/HCPCS: 90004; 90100; 90469; 91400; 91576; 93140; 94001; 94060; 95059; 98370; 99270